=== PATIENT | male | born 1965 | race American Indian/Alaskan Native ===

== ENCOUNTER 2021-02-18 07:51 | Day surgery (SDC) | payer OTHER ==
[2021-02-18] MEDS ORDERED: ceFAZolin/STERILE WATER 2 GM/20 ML SYRINGE IV NR (08:30)
[2021-02-18] MEDS ORDERED: LACTATED RINGERS 1,000 ML IV SCH (09:00)
[2021-02-18] MEDS ORDERED: BUPIVACAINE/PF (0.5%) 5 MG/1 ML 30 ML VIAL INFILTRATI ONE ×2 (09:21→12:48)
[2021-02-18] MEDS ORDERED: LIDOCAINE (1%) 10 MG/1 ML VIAL 20 ML MDV ONE (09:21)
--- NOTE | 2021-02-18 10:29 | Anesthesia Day of Surgery ---
Anesthesia Day of Surgery - Day of Surgery Patient Examined: Yes Patient H&P Reviewed: Yes Patient is NPO: Yes
--- NOTE | 2021-02-18 10:30 | Anesthesia Consultation ---
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 Has not started taking metformin yet) - Hematic Hx Anemia: No - Other Systems Hx Cancer: No Hx Obesity: No
[2021-02-18] MEDS ORDERED: propofoL 200 MG/20 ML VIAL IV ONE (10:45)
[2021-02-18] MEDS ORDERED: fentaNYL 250 MCG/5 ML INJ ONE (10:45)
[2021-02-18] MEDS ORDERED: ROCURONIUM 50 MG/5 ML INJ IV ONE (10:46)
[2021-02-18] MEDS ORDERED: LIDOCAINE MPF (2%) 20 MG/1 ML VIAL 5 ML ONE (10:46)
[2021-02-18] MEDS ORDERED: HYDROmorphone 1 MG/1 ML INJ IV PRN ×2 (11:00)
[2021-02-18] MEDS ORDERED: MAGNESIUM OXIDE 400 MG TAB PO SCH (11:00)
[2021-02-18] MEDS ORDERED: MIDAZOLAM 2 MG/2 ML INJ IV NR (11:00)
[2021-02-18] MEDS ORDERED: CELECOXIB 200 MG CAP PO NR (11:00)
[2021-02-18] MEDS ORDERED: ACETAMINOPHEN 500 MG TAB PO SCH (11:00)
[2021-02-18] MEDS ORDERED: ONDANSETRON 4 MG/2 ML INJ IV PRN (11:00)
[2021-02-18] MEDS ORDERED: ONDANSETRON 4 MG/2 ML INJ ONE (11:58)
[2021-02-18] MEDS ORDERED: KETOROLAC 30 MG/1 ML INJ ONE (11:59)
[2021-02-18] MEDS ORDERED: LIDOCAINE (1%) 10 MG/1 ML VIAL 20 ML MDV INFILTRATI ONE (12:48)
[2021-02-18] MEDS ORDERED: dexAMETHasone 20 MG/5 ML VIAL ONE (13:30)
[2021-02-18] MEDS ORDERED: GLYCOPYRROLATE 0.4 MG/2 ML INJ ONE (13:30)
[2021-02-18] MEDS ORDERED: NEOSTIGMINE 10MG/10 ML INJ MDV ONE (13:30)
--- NOTE | 2021-02-18 13:57 | Short Stay Summary ---
Short Stay Documentation Date of service: 02/18/21 - History Principal diagnosis: left inguinal hernia H&P: obtained from office - Allergies and Medications Current Medications: Allergies No Known Allergies Allergy (Verified 03/06/15 04:40) Home Medications Medication Instructions Recorded Confirmed Last Taken Type Ibuprofen [Advil Migraine] 200 mg PO DAILY 02/14/21 02/14/21 02/17/21 History amLODIPine [Norvasc] 10 mg PO DAILY 02/14/21 02/18/21 02/18/21 07:15 History lisinopriL [Lisinopril] 20 mg PO DAILY 02/14/21 02/14/21 02/17/21 History Active Medications Acetaminophen (Acetaminophen 500 Mg Tab) 1,000 mg PO ONCE DEBRA Stop: 02/18/21 21:00 Last Admin: 02/18/21 10:46 Dose: 1,000 mg Documented by: Celecoxib (Celecoxib 200 Mg Cap) 400 mg PO PREOP NR Stop: 02/18/21 21:00 Last Admin: 02/18/21 10:46 Dose: 400 mg Documented by: Hydromorphone HCl (Hydromorphone 1 Mg/1 Ml Inj) 0.25 mg IV Q10MIN PRN PRN Reason: Pain, Moderate (4-6) Stop: 02/18/21 17:00 Hydromorphone HCl (Hydromorphone 1 Mg/1 Ml Inj) 0.5 mg IV Q10MIN PRN PRN Reason: Pain , Severe (7-10) Stop: 02/18/21 18:00 Lactated Ringer's (Lactated Ringers) 1,000 mls @ 100 mls/hr IV DIRECT DEBRA Last Admin: 02/18/21 09:20 Dose: 100 mls/hr Documented by: Magnesium Oxide (Magnesium Oxide 400 Mg Tab) 400 mg PO ONCE DEBRA Stop: 02/18/21 21:00 Last Admin: 02/18/21 10:45 Dose: 400 mg Documented by: Midazolam HCl (Midazolam 2 Mg/2 Ml Inj) 2 mg IV PREOP NR Stop: 02/18/21 23:59 Last Admin: 02/18/21 10:47 Dose: 2 mg Documented by: Ondansetron HCl (Ondansetron 4 Mg/2 Ml Inj) 4 mg IV ONCE PRN PRN Reason: Nausea And Vomiting Stop: 02/18/21 18:00 - Brief post op/procedure progress note Date of procedure: 02/18/21 Pre-op diagnosis: left inguinal hernia Post-op diagnosis: same Procedure: robotic assisted left inguinal hernia repair with mesh, ilioinguinal nerve block LEFT Anesthesia: GETA, local Findings: Indirect and direct hernia containing fat Surgeon: MADELINE CALDERON Make Up Operator Helper: GIRCEL FARMER Estimated blood loss: minimal Pathology: none Specimen disposition: to lab Condition: stable - Hospital course Hospital course: Patient observed in PACU and discharged home in stable condition when criteria met - Disposition Condition at discharge: Good Disposition: DC- TO HOME OR SELFCARE Short Stay Discharge Plan Activity: other (No heavy lifting greater than 15 pounds for the next 6 weeks) Diet: regular Wound: open to air, per your surgeon's advice Additional Instructions: See printed discharge instructions Follow up with: PRIMARY CARE, [Primary Care Provider] - 7 Days MADELINE CALDERON DO [Staff Physician] - 14 Days Prescriptions: Gabapentin 300 mg PO BID #6 cap Ibuprofen [Motrin 800 MG tab] 800 mg PO Q8HR #30 tablet HYDROcodone/APAP 5-325 [[place] 5/325] 1 each PO Q6HR PRN #20 tablet PRN Reason: Pain , Severe (7-10)
[2021-02-18 15:01] VITALS: BP 145/89
--- NOTE | 2021-02-18 15:57 | Post Anesthesia Evaluation ---
- Post Anesthesia Evaluation Patient Participated: Yes Airway Patent: Yes Stable Respiratory Function: Yes Nausea/Vomiting: No Temp > 96.8F: Yes Pain Manageable: Yes Adequeate Hydration: Yes Anesthesia Complications: No Block Receding Appropriately: Not Applicable Patient on Ventilator: No
--- NOTE | 2021-02-19 14:31 | Operative Report ---
Operative Report Operative Report: Date of procedure: 02/18/21 Pre-op diagnosis: left inguinal hernia Post-op diagnosis: same Procedure: robotic assisted left inguinal hernia repair with mesh, ilioinguinal nerve block LEFT Anesthesia: GETA, local Findings: Indirect and direct hernia containing fat Surgeon: MADELINE CALDERON Tooling Specialist: GRICEL FARMER Estimated blood loss: minimal Pathology: none Specimen disposition: to lab Condition: stable Hospital course: Patient observed in PACU and discharged home in stable condition when criteria met HPI and indication: Patient is a 55-year-old male who was referred to the surgery clinic for a bulge in the left groin. He was found to have a left inguinal hernia on physical exam. It was recommended that the hernia be repaired. I discussed all risk, benefits, alternatives to repair with the patient and questions were answered. I explained that if the hernia was found on the right side at the same time, this would be fixed as well. The patient was agreeable. Consent obtained for robotic assisted left inguinal hernia repair with mesh, possible right, possible open. Procedure in detail: Patient was identified in the preoperative area, take back to operating room placed on operative table in supine position. After anesthesia was induced both arms were tucked and all bony prominences padded appropriately. A Squires catheter was sterilely placed by the circulating nurse. The abdomen and b/l groins were then prepped and draped in usual sterile fashion and a timeout performed. Local anesthetic was infiltrated to skin at the intended incision sites. A supraumbilical incision was made through which a Veress needle was inserted. Veress needle positioning was confirmed using saline drop test and the abdomen insufflated to 15 mmHg without incident. Once the abdomen was insufflated, the Veress needle was removed and a 5 mm Optiview trocar was placed as incision. The abdomen was inspected and there was no underlying injury to any of the abdominal structures. Patient was placed in Trendelenburg and the pelvis examined. There was a left inguinal hernia and no hernia on the right. At this point, an 8 mm right upper quadrant and left upper quadrant robotic trocars were then placed under direct visualization. The 5 mm supraumbilical trocar was removed and replaced with a 12 mm balloon trocar under direct visualization. A Ray-Mani was placed into the abdomen. The robot was then docked. A fenestrated bipolar was placed into arm #2 and a monopolar scissor in arm #1. The surgeon was then transferred to the console. First, I created a left sided preperitoneal flap. The peritoneum was scored approximately 5 to 6 cm from the hernia defect. The peritoneum was then incised from the midline to the ASIS. The preperitoneal flap was then developed in an avascular plane. I first defined the medial margin by dissecting to the pubic tubercle. The pubic tubercle was cleared of overlying fatty tissue using blunt dissection. I then created the lateral margin in a similar fashion. Great care was taken to avoid injury to any nerves. There was an indirect and direct inguinal hernia. Fatty tissue incarcerated within the direct hernia was gently reduced. The hernia sac associated with the indirect hernia was gently reduced using blunt dissection and transecting cremasteric fibers with electrocautery. During the dissection, the cord structures were identified and protected. The cord structures and vas deferens were visualized throughout the entire dissection. Once the hernia sac was completely reduced, the peritoneal flap was checked for hemostasis. Any additional cremasteric fibers that were were tenting up the peritoneum were divided. Hemostasis was carefully ensured. The hernia was repaired using a LEFT large 3D max mesh. The mesh along with suture material was placed into the abdomen by the teacher assistant. The mesh was positioned into the preperitoneal flap in the usual fashion. The medial portion of the mesh was sutured to Mitch's ligament using an interrupted 2-0 Vicryl stitch. The lateral aspect of the mesh was sutured to the anterior lateral abdominal wall using a 2-0 Vicryl interrupted stitch. The mesh was seen to lay flat in the pocket with excellent coverage. The intra-abdominal pressure was turned down to 8 mmHg. The peritoneum was then reapproximated using 3-0 running V-Loc stitch. The entirety of the mesh was covered with peritoneum. The robot was then undocked and the surgeon scrubbed back in. The remainder of the case was performed laparoscopically. All sharp materials along with a Ray-Mani were removed from the abdomen under direct visualization. The 12 mm port was removed and the fascia closed using a interrupted 0 Vicryl stitches. The abdomen was then slowly desufflated and the mesh was seen to lay flat in the preperitoneal space. The remaining trocars were removed. Skin incisions were once again infiltrated with local anesthetic. LEFT ilioinguinal nerve block was also performed with 5 cc of local anesthetic. The skin incisions were approximated with 4-0 Monocryl subcuticular stitches and skin glue. At the end of the case all sponge, instrument, sharp counts were correct x2. Patient was awoken from anesthesia and Squires catheter removed. Both testicles were palpated in the scrotum in anatomic position. The patient was taken to PACU in stable condition.
== END 2021-02-18 15:35 | disposition home or self-care (01) ==
LOC: OR 07:51
PROVIDERS: ATTEND Surgery
DX: K40.90 Unilateral inguinal hernia, without obstruction or gangrene, not specified as recurrent (principal); I10 Essential (primary) hypertension; E11.9 Type 2 diabetes mellitus without complications; F17.210 Nicotine dependence, cigarettes, uncomplicated; Z79.899 Other long term (current) drug therapy; Z98.890 Other specified postprocedural states
CPT/HCPCS: 49650; 82962; C1781; J0690; J1100; J1170; J1885; J2250; J2405; J2704; J2710; J3010; J7120; S2900